=== PATIENT | female | born 1945 | race Caucasian/White ===

== ENCOUNTER 2017-02-08 17:39 | Emergency (ER) | payer BC, OTHER ==
[~2017-02-08] VITALS: Ht 160 cm; Wt 59.5 kg
[2017-02-08 17:55] VITALS: Ht 160 cm; Wt 59.5 kg
[2017-02-08] MEDS ORDERED: CALC-354 PO (18:19)
[2017-02-08] MEDS ORDERED: PRMVC PV (18:19)
[2017-02-08] MEDS ORDERED: MULT-240 PO (18:19)
--- NOTE | 2017-02-08 18:44 | DIAGNOSTIC IMAGING REPORT ---
RIGHT FOOT MIN 3 VIEWS ROUTINE CLINICAL HISTORY: Right foot swelling and pain. COMPARISON: None FINDINGS: Tarsometatarsal joints are intact. There is moderate to marked joint space narrowing of the right first metatarsophalangeal joint with osteophytosis and associated soft tissue swelling. There may be mild associated erosions centered on the right first metatarsophalangeal joint. No acute fracture is identified. A small sclerotic lesion within the distal phalanx of the right first toe is benign. Mild to moderate osteoarthritis is noted within multiple additional articulations of the right foot. IMPRESSION: 1. No acute fracture or dislocation of the right foot. 2. Joint space narrowing with osteophytosis and soft tissue swelling the right first metatarsophalangeal joint. This favors a moderate to severe osteoarthritis. Gout could appear similar although is considered less likely. Electronically signed by: Davin Reyes M.D. 02/08/2017 6:43 PM Dictated Date/Time: 02/08/2017 6:40 PM
--- NOTE | 2017-02-08 19:30 | DIAGNOSTIC IMAGING REPORT ---
RIGHT LOWER EXTREMITY VENOUS DOPPLER CLINICAL HISTORY: Right lower extremity edema. COMPARISON STUDY: No previous studies for comparison. TECHNIQUE: Sonography of the deep venous system of the right lower extremity was performed. Compression and augmentation were evaluated. FINDINGS: The common femoral, superficial femoral and popliteal veins were compressible. There was thrombus within the right anterior tibial and peroneal veins. IMPRESSION: Deep venous thrombus within the right anterior tibial and peroneal veins. Electronically signed by: Davin Reyes M.D. 02/08/2017 7:29 PM Dictated Date/Time: 02/08/2017 7:27 PM
[2017-02-08 20:21] LABS: BASO % 0.5 %; BASO ABS # 0.03 K/uL (0-0.2); COMPLETE YES; EOS % 1.2 %; HEMATOCRIT 40.6 % (37-47); LYMPH % 38.5 %; LYMPH ABS # 2.25 K/uL (1.2-3.4); MEAN CELL VOLUME 88.3 fL (80-100); MEAN CORPUSCULAR HEMOGLOBIN 30.2 pg (25-34); MEAN CORPUSCULAR HGB CONC 34.2 g/dl (32-36); MEAN PLATELET VOLUME 10.7 fL (7.4-10.4); MONO % 6.5 %; NEUT % 53.3 %; PLATELET COUNT 224 K/uL (130-400); WHITE BLOOD COUNT 5.84 K/uL (4.8-10.8)
[2017-02-08 20:31] LABS: INR 0.9 (0.9-1.1); PARTIAL THROMBOPLASTIN RATIO 1.1
[2017-02-08 20:38] LABS: BUN/CREATININE RATIO 14.5 (10-20); CREATININE 0.78 mg/dl (0.60-1.20); POTASSIUM 3.9 mmol/L (3.5-5.1)
[2017-02-08 20:41] LABS: ALB/GLOB RATIO 1.1 (0.9-2)
[2017-02-08 20:44] LABS: CALCIUM 9.5 mg/dl (8.5-10.1)
[2017-02-08] MEDS ORDERED: RIVA1.5T PO (21:57)
[2017-02-08] MEDS ORDERED: RIVAROXABAN TAB 15 MG TAB PO ONE (22:00)
[2017-02-08 22:09] VITALS: BP 134/85; PULSE 74; TEMP 36.7; O2SAT 96
--- NOTE | 2017-02-08 23:47 | EMERGENCY ROOM VISIT NOTE ---
History First contact with patient: 17:58 Chief Complaint: FOOT PAIN Stated Complaint: SWOLLEN FOOT ANKLE History of Present Illness The patient is a 71 year old female who presents to the Emergency Room with complaints of pain and swelling into her right foot worsening over the past 5 days. The patient has not had injury or trauma to explain her symptoms. She has not had fever or chills. No history of gout. She has not taken anything [id number] for her discomfort. The patient has a recent history of travel to [facility], and returned to the [facility] about 2 weeks ago. She does take Premarin. She is concerned for both fracture and DVT. She has not had a history of DVT in the past and there is no family history of coagulopathy. The patient does not have chest pain, chest tightness, shortness of breath, or palpitations. No other chronic medical disease. She rates her discomfort a 5/10. Review of Systems More than 10 systems were reviewed and otherwise negative with the exception of history of present illness. Past Medical/Surgical History No pertinent chronic medical disease Family History Lives at home with family Social History Smoking Status: Never Smoker Housing Status: lives with family Current/Historical Medications Scheduled Calcium Carbonate-Cholecalcife (Caltrate 600+D), 1 TAB PO DAILY Estrogens, Conjugated (Premarin), 1 APPLN PV UD Multiple Vitamins W/ Minerals (Womens One Daily), 1 TAB PO DAILY Rivaroxaban (Xarelto), 15 MG PO BIDM Allergies Coded Allergies: Amoxicillin (Verified Allergy, Intermediate, Rash, 02/08/17) Cefprozil (Verified Allergy, Intermediate, Rash, 02/08/17) Physical Exam Vital Signs Date Time Temp Pulse Resp B/P (MAP) Pulse Ox O2 Delivery O2 Flow Rate FiO2 02/08/17 22:09 36.7 74 20 134/85 96 02/08/17 17:55 36.7 74 20 134/85 96 Room Air Pain Rating (0-10): 0 Physical Exam VITALS: Vitals are noted on the nurse's note and reviewed by myself. Vital signs stable. GENERAL: Well-developed, well-nourished, white female, who is in no acute distress and resting comfortably. Patient is cooperative with the examination. HEAD: Normocephalic atraumatic. HEART: Regular rate and rhythm without murmurs gallops or rubs. LUNGS: Clear to auscultation bilaterally without wheezes, rales or rhonchi. No retractions or accessory muscle use. ABDOMEN: Positive normal bowel sounds x 4. Soft, nontender, without masses or organomegaly. No guarding or rebound tenderness. MUSCULOSKELETAL: Mild edema appreciated over the right foot when compared to the left foot. There is no pitting edema or evidence of infection. No abscess. There is no distinct posterior calf tenderness of the right lower extremity. No palpable cords throughout. NEURO: Patient was alert and oriented to person place and time. CN II through XII grossly intact. Deep tendon reflexes 2+ throughout. Medical Decision & Procedures ER Provider Diagnostic Interpretation: RIGHT FOOT MIN 3 VIEWS ROUTINE CLINICAL HISTORY: Right foot swelling and pain. COMPARISON: None FINDINGS: Tarsometatarsal joints are intact. There is moderate to marked joint space narrowing of the right first metatarsophalangeal joint with osteophytosis and associated soft tissue swelling. There may be mild associated erosions centered on the right first metatarsophalangeal joint. No acute fracture is identified. A small sclerotic lesion within the distal phalanx of the right first toe is benign. Mild to moderate osteoarthritis is noted within multiple additional articulations of the right foot. IMPRESSION: 1. No acute fracture or dislocation of the right foot. 2. Joint space narrowing with osteophytosis and soft tissue swelling the right first metatarsophalangeal joint. This favors a moderate to severe osteoarthritis. Gout could appear similar although is considered less likely. RIGHT LOWER EXTREMITY VENOUS DOPPLER CLINICAL HISTORY: Right lower extremity edema. COMPARISON STUDY: No previous studies for comparison. TECHNIQUE: Sonography of the deep venous system of the right lower extremity was performed. Compression and augmentation were evaluated. FINDINGS: The common femoral, superficial femoral and popliteal veins were compressible. There was thrombus within the right anterior tibial and peroneal veins. IMPRESSION: Deep venous thrombus within the right anterior tibial and peroneal veins. Laboratory Results 02/08/17 20:08 Red Blood Count 4.60, Mean Corpuscular Volume 88.3, Mean Corpuscular Hemoglobin 30.2, Mean Corpuscular Hemoglobin Concent 34.2, Mean Platelet Volume 10.7, Neutrophils (%) (Auto) 53.3, Lymphocytes (%) (Auto) 38.5, Monocytes (%) (Auto) 6.5, Eosinophils (%) (Auto) 1.2, Basophils (%) (Auto) 0.5, Neutrophils # (Auto) 3.11, Lymphocytes # (Auto) 2.25, Monocytes # (Auto) 0.38, Eosinophils # (Auto) 0.07, Basophils # (Auto) 0.03 02/08/17 20:08 Test 02/08/17 20:08 White Blood Count 5.84 K/uL (4.8-10.8) Red Blood Count 4.60 M/uL (4.2-5.4) Hemoglobin 13.9 g/dL (12.0-16.0) Hematocrit 40.6 % (37-47) Mean Corpuscular Volume 88.3 fL (80-100) Mean Corpuscular Hemoglobin 30.2 pg (25-34) Mean Corpuscular Hemoglobin Concent 34.2 g/dl (32-36) Platelet Count 224 K/uL (130-400) Mean Platelet Volume 10.7 fL (7.4-10.4) Neutrophils (%) (Auto) 53.3 % Lymphocytes (%) (Auto) 38.5 % Monocytes (%) (Auto) 6.5 % Eosinophils (%) (Auto) 1.2 % Basophils (%) (Auto) 0.5 % Neutrophils # (Auto) 3.11 K/uL (1.4-6.5) Lymphocytes # (Auto) 2.25 K/uL (1.2-3.4) Monocytes # (Auto) 0.38 K/uL (0.11-0.59) Eosinophils # (Auto) 0.07 K/uL (0-0.5) Basophils # (Auto) 0.03 K/uL (0-0.2) RDW Standard Deviation 43.7 fL (36.4-46.3) RDW Coefficient of Variation 13.5 % (11.5-14.5) Immature Granulocyte % (Auto) 0.0 % Immature Granulocyte # (Auto) 0.00 K/uL (0.00-0.02) Prothrombin Time 10.0 SECONDS (9.0-12.0) Prothromb Time International Ratio 0.9 (0.9-1.1) Activated Partial Thromboplast Time 27.5 SECONDS (21.0-31.0) Partial Thromboplastin Ratio 1.1 Anion Gap 8.0 mmol/L (3-11) Est Creatinine Clear Calc Drug Dose 56.3 ml/min Estimated GFR () 89.9 Estimated GFR (Non- 77.6 BUN/Creatinine Ratio 14.5 (10-20) Calcium Level 9.5 mg/dl (8.5-10.1) Total Bilirubin 0.4 mg/dl (0.2-1) Aspartate Amino Transf (AST/SGOT) 22 U/L (15-37) Alanine Aminotransferase (ALT/SGPT) 16 U/L (12-78) Alkaline Phosphatase 77 U/L (45-117) Total Protein 7.7 gm/dl (6.4-8.2) Albumin 4.0 gm/dl (3.4-5.0) Globulin 3.7 gm/dl (2.5-4.0) Albumin/Globulin Ratio 1.1 (0.9-2) Medications Administered Medications (Trade) Dose Ordered Sig/Mikhail Route Start Time Stop Time Status Last Admin Dose Admin Rivaroxaban (Xarelto Tab) 15 mg NOW ONCE PO 02/08/17 22:00 02/08/17 22:01 DC 02/08/17 22:08 15 MG ED Course Physical exam and history were performed. Nursing notes and EMR were reviewed. Patient appears to have right foot pain and swelling for the past several days. X-ray and ultrasound were performed. The patient x-ray does not show evidence of acute fracture. Unfortunately her ultrasound is concerning for an acute DVT, which clinically does correlate with her symptoms. Following identification of the DVT blood work was obtained. The patient's blood work is as above and was reviewed. She does not have a significantly elevated white blood cell count, gross anemia, decreased platelet count, or renal impairment. Hypercoagulable studies are pending at the time of this dictation. I had a lengthy discussion regarding options of care with the patient. She continues to remain in stable condition with good vital signs here in the department. She does not have chest pain and I do not suspect a PE at this time. Utilizing shared decision making we elected to begin Xarelto, and the patient's first dose was provided here in the department. I involved case management regarding this patient's, as she will need very close follow-up by her primary care physician. We will contact her PCP in the morning and try to have the patient seen on a short interval. The patient was pleased with this and voiced understanding. She was given a prescription for her first 3 weeks of Xarelto. She was educated on the importance of close follow-up and concerning symptoms to return to the ED for. The patient rated her discomfort a 2/10 at the time of departure. The chart was completed utilizing [employer] Speech Voice Recognition Software. Grammatical errors, random word insertions, pronoun errors, and incomplete sentences are an occasional consequence of this system due to software limitations, ambient noise, and hardware issues. Any formal questions or concerns about the content, text, or information contained within the body of this dictation should be directly addressed to the provider for clarification. . Medical Decision Differential diagnosis: Etiologies such as DVT, musculoskeletal, infection, joint effusion, trauma, lymphedema, idiopathic, CHF, as well as others were entertained.. Impression Primary Impression: Acute DVT (deep venous thrombosis) Departure Information Dispostion Home / Self-Care Condition GOOD Prescriptions Rivaroxaban (XARELTO) 15 Mg Tab 15 MG PO BIDM for 21 Days, #42 TAB Prov: Chris Gomez PA-C 02/08/17 Forms HOME CARE DOCUMENTATION FORM, IMPORTANT VISIT INFORMATION Patient Instructions DVT Complications, On License Of [facility], ED DVT Additional Instructions You were seen and evaluated today on an emergency basis only. This is not a substitute for, or an effort to provide, complete comprehensive medical care. It is not possible to recognize and treat all injuries or illnesses in a single emergency department visit. For this reason it is recommended that you followup with your primary care physician in the next one to 2 days for recheck of your condition. The emergency department case making machine operator will call the office in the morning to help facilitate your appointment. Take Xarelto 15 mg twice daily for the next 3 weeks. You will then need to transition to a 20 mg once daily dose. This once daily prescription will need to be provided by your primary care physician. You are welcome to return to the emergency department anytime with new, worsening, or concerning symptoms.
[2017-02-12 20:32] LABS: ANTITHROMBINIII ACTIVITY** 84 % activity (80-120); B2 GLYCOPROTEIN IGA <9 SAU (<=20); B2 GLYCOPROTEIN IGG <9 SGU (<=20); B2 GLYCOPROTEIN IGM <9 SMU (<=20); LUPUS ANTICOAGULANT** TC36573X Weak Positive (Negative); PROTEIN C ACTIVITY** TC 1777X 118 % (70-180); PROTEIN S ACT(FUNCT)**1779X 96 % (60-140)
== END 2017-02-08 22:10 | disposition home or self-care (01) ==
LOC: C.EDB 17:40 → C.EDD 22:10
DX: I82.4Z1 Acute embolism and thrombosis of unspecified deep veins of right distal lower extremity (principal); Z79.899 Other long term (current) drug therapy

== ENCOUNTER → 2017-08-26 | Outpatient (CLI) | payer BC ==
[~2017-08-26] MED LIST: CALC-354 PO; MULT-240 PO; PRMVC PV; RIVA1.5T PO
--- NOTE | 2017-08-26 13:46 | MAMMOGRAPHY REPORT ---
BILATERAL DIGITAL SCREENING MAMMOGRAM WITH CAD: 08/26/2017 CLINICAL HISTORY: Routine screening. Patient has no complaints. TECHNIQUE: Current study was also evaluated with a Computer Aided Detection (CAD) system. Bilateral CC and MLO views were obtained. COMPARISON: Comparison is made to exams dated: 08/25/2016 mammogram, 08/21/2015 mammogram, 4 mammogram, 08/17/2013 mammogram, 08/16/2012 mammogram, and 08/13/2011 mammogram - [facility]. BREAST COMPOSITION: There are scattered areas of fibroglandular density in both breasts. FINDINGS: No suspicious masses, calcifications, or areas of architectural distortion are noted in ei ther breast. There has been no significant interval change compared to prior exams. Scattered bilater al benign-appearing calcifications are not significantly changed. IMPRESSION: ACR BI-RADS CATEGORY 2: BENIGN There is no mammographic evidence of malignancy. A 1 year screening mammogram is recommended. The pa tient will receive written notification of the results. Approximately 10% of breast cancers are not detected with mammography. A negative mammographic report should not delay biopsy if a clinically suggestive mass is present. Hoa Waterman M.D. ah/:08/26/2017 12:12:48 Ore Crusher: Kizzy MARIN(R)(M), [facility] letter sent: Normal 1/2 BI-RADS Code: ACR BI-RADS Category 2: Benign
== END | disposition home or self-care (01) ==
LOC: C.MAMM 09:44
PROVIDERS: ATTEND Family Medicine
DX: Z12.31 Encounter for screening mammogram for malignant neoplasm of breast (principal)

== ENCOUNTER → 2017-11-29 | Outpatient (CLI) | payer OTHER | END | disposition home or self-care (01) | LOC: C.MAMM 07:51 | PROVIDERS: ATTEND Family Medicine | DX: M81.0 Age-related osteoporosis without current pathological fracture (principal); M85.89 Other specified disorders of bone density and structure, multiple sites ==